=== PATIENT | female | born 1985 | race Caucasian/White ===

== ENCOUNTER 2020-06-23 01:53 | Outpatient (CLI) | payer MEDICARE, MEDICAID, SELFPAY ==
[2020-06-23 20:39] LABS: SARS-CoV-2 RNA PCR Negative
== END 2020-06-23 01:54 | disposition home or self-care (01) ==
LOC: ANHCOVIDDT 01:53
PROVIDERS: Visit Provider Obstetrics & Gynecology
DX: Z01.818 Encounter for other preprocedural examination (principal); Z20.828 Contact with and (suspected) exposure to other viral communicable diseases
CPT/HCPCS: 87635; C9803; U0003

== ENCOUNTER 2020-06-25 01:36 | Day surgery (SDC) | payer MEDICARE, MEDICAID, SELFPAY ==
[2020-06-23 08:43] VITALS: BMI 37.0
--- NOTE | 2020-06-24 13:16 | WPDANESEPPF ---
Anes - Initial Pre Proc Eval Procedure: Operation Date: 06/25/20 10:45 Proposed Procedures p Diagnostic Laparoscopy - Gabrielle Doherty MD Date/Time: 06/24/20 13:16 Surgeon: Gabrielle Doherty MD Pre Op Diagnosis: Pelvic Pain Patient Data Age: 35 Gender: F Height: 1.65 m Weight: 101.15 kg Allergies Allergy/AdvReac Type Severity Reaction Status Date / Time codeine AdvReac nausea/vomi Verified 06/25/20 09:51 ting Home Medications Medication Instructions Recorded Confirmed Type atorvastatin 10 mg PO DAILY 06/23/20 06/25/20 History dulaglutide [Trulicity] 0.75 mg SUBCUT WEEKLY 06/23/20 06/25/20 History hydrochlorothiazide 25 mg PO DAILY 06/23/20 06/25/20 History levothyroxine 88 mcg PO DAILY 06/23/20 06/25/20 History metformin 1,000 mg PO BID 06/23/20 06/25/20 History montelukast 10 mg PO DAILY 06/23/20 06/25/20 History norethindrone (contraceptive) 0.35 mg PO DAILY 06/23/20 06/25/20 History paroxetine HCl 30 mg PO QPM 06/23/20 06/25/20 History propranolol 10 mg PO DAILY PRN 06/23/20 06/25/20 History Patient hx anesthesia problems: none Family hx anesthesia problems: none PMFSH Past Medical History Medical History (Updated 06/24/20 @ 13:19 by Waqar Carrero MD) Anxiety Asthma Depression Diabetes HTN (hypertension) Hypercholesterolemia Hypothyroidism Obesity Social History Social History Smoking status: Never smoker Spiritual care concerns: No Anes - Eval Final PreProcedure Day of Procedure 06/24/20 13:16 Patient weight: obese Heart: regular rate and rhythm Lungs: clear to auscultation and normal air movement Airway: Mallampati scale class II Neurological: alert and oriented Last oral intake: >/= 8 hours ASA classification: III Emergent: no Anesthetic plan: proceed Anesthesia type and monitoring: general ETT Informed Consent: The patient's anesthetic plan and its attendant risks and benefits were discussed with the patient/family/POA. Questions were solicited and answers provided to the satisfaction of the patient/family/POA.
[2020-06-25] VITALS (10 sets, daily range): BP systolic 101–130; BP diastolic 52–65; PULSE 62–86; RESP 12–20; TEMP 36.1–36.4; O2SAT 92–99
--- NOTE | 2020-06-25 09:03 | ECG_ITS ---
Measurements Intervals [place] Rate: 68 P: 5 NC: 167 QRS: 12 QRSD: 83 T: 27 QT: 411 QTc: 440 Interpretive Statements SINUS RHYTHM RSR' IN V1 OR V2, CONSIDER RIGHT VENTRICULAR HYPERTROPHY OR RIGHT VCD BORDERLINE T WAVE ABNORMALITY- ANTERIOR LEADS BASELINE ARTIFACT- V4 BORDERLINE ECG Electronically Signed On 06-25-2020 11:21:18 POST EXCHANGE MANAGER by Aashish Tavera D.O.
[2020-06-25] MEDS: LACTATED RINGERS 1,000 ML 30 ML IV CONT ×2 (09:22→13:24)
[2020-06-25] MEDS: ACETAMINOPHEN 500 MG TABLET 1000 MG PO (09:22)
[2020-06-25] MEDS: KETOROLAC 15 MG/ML VIAL (*BKC) IV PUSH (09:29)
[2020-06-25 09:36] LABS: Glucose Point of Care 157 (65-105)
[2020-06-25 10:43] LABS: Anion Gap 13 mmol/L (8-16); Blood Urea Nitrogen 13 mg/dL (7-17); Calcium 9.3 mg/dL (8.4-10.2); Carbon Dioxide 25 mmol/L (22-30); Chloride 100 mmol/L (98-107); Estimated CRCL calculation 127 ml/min; Estimated Glomerular Filt Rate > 60; Glucose 155 mg/dL (65-105); Potassium 3.8 mmol/L (3.4-5.0); Sodium 138 mmol/L (137-145)
--- NOTE | 2020-06-25 10:48 | WPDHPUPDATE1 ---
History and Physical Update Update Date/Time: 06/25/20 10:48 History and Physical has been reviewed, including an updated exam of the patient. There are NO changes in the patient's condition. Risks, benefits, and alternatives have been discussed and questions answered. Patient agrees to proceed with procedure.
[2020-06-25 13:34] LABS: Glucose Point of Care 198 (65-105)
--- NOTE | 2020-06-25 13:41 | P.OP_ITS ---
Procedure Note - Detailed Date of procedure: 06/25/20 Pre-op diagnosis: Pelvic Pain Procedure performed: Radical resection of pelvic peritoneum. 1 hour of resection endometriosis and adhesiolysis. Description of procedure: The patient was taken the operating room. She was prepped and draped in the dorsal lithotomy position after induction of general anesthesia. A 5 mm left upper quadrant incision was made in the abdominal skin with a scalpel. A 5 mm trocar was inserted the intra-abdominal cavity under direct visualization of the scope. A 5 mm left lower quadrant incision was made with the scalp on the abdominal skin and a 5 mm trocar was inserted the intra- abdominal cavity under direct visualization of the scope. A 5 mm infraumbilical incision was made with scalpel and a 5 mm trocar was inserted into the intra- abdominal cavity under direct visualization of the scope. The ovaries were suspended using 0 Vicryl sutures that were passed through the abdomen with a Da-Berto needle. The needle was passed through the abdominal wall in the bilateral lower quadrants. It was passed to the ovary. The suture was brought back up through the abdominal wall using the Da- Berto Endo Close needle. A uterine manipulator was placed into uterine cavity using a speculum and tenaculum. It was JUHI manipulator in the bulb was inflated. The peritoneum in the posterior cul-de-sac was removed. This took approximately 1 hour. There was sharp and blunt dissection along with the use of cautery. The ureters were I dissected out from the pelvic brim down to the uterine arteries. All the peritoneum in the posterior cul-de-sac was removed with the exception of the rectal peritoneum. The rectum appeared normal. The pelvis was irrigated with copious amounts of normal saline. The pneumoperitoneum was reduced. The trocars were removed. The patient was taken recovery room stable condition. Sponge lap and needle counts were correct x2. Anesthesia: GETA Surgeon: Gabrielle Doherty MD Estimated blood loss (mL): 20 Drains: No Packing: No Complications: No immediate complications Condition: stable Disposition: PACU
[2020-06-25] MEDS: ONDANSETRON INJ 4 MG/2 ML VIAL IV PUSH (14:59)
== END 2020-06-25 15:50 | disposition home or self-care (01) ==
PROVIDERS: Visit Provider Obstetrics & Gynecology
PROC: (CPT 49320; principal; 2020-06-25 10:45)
DX: N80.3 Endometriosis of pelvic peritoneum (principal); I10 Essential (primary) hypertension; E11.9 Type 2 diabetes mellitus without complications; Z79.84 Long term (current) use of oral hypoglycemic drugs; E78.00 Pure hypercholesterolemia, unspecified; E03.9 Hypothyroidism, unspecified; J45.909 Unspecified asthma, uncomplicated; F41.9 Anxiety disorder, unspecified; F32.9 Major depressive disorder, single episode, unspecified; E66.9 Obesity, unspecified; Z68.36 Body mass index [BMI] 36.0-36.9, adult; Z79.899 Other long term (current) drug therapy; Z88.5 Allergy status to narcotic agent
CPT/HCPCS: 49329; 36415; 80048; 88305; 93005; A9270; J1100; J1170; J1885; J2250; J2405; J2704; J2710; J3010; J7030; J7120